=== PATIENT | female | born 1955 | race Caucasian/White ===

== ENCOUNTER 2018-08-09 14:26 | Emergency (ER) | payer OTHER, SELFPAY ==
[2018-08-09 14:33] VITALS: BP 138/87; PULSE 74; RESP 14; TEMP 36.2; O2SAT 99; BMI 23.6
[2018-08-09 17:46] LABS: Add Manual Diff / Slide Review NO; Basophils Absolute Auto 100 /uL (0-100); Basophils Percent Auto 1.1 % (0-2); Eosinophils Absolute Auto 200 /uL (0-450); Eosinophils Percent Auto 4.4 % (2-4); Hematocrit 42.1 % (36-46); Lymphocytes Absolute Auto 1500 /uL (1100-4500); Lymphocytes Percent Auto 27.8 % (25-40); Mean Corpuscular HGB Conc 33.3 % (30-36); Mean Corpuscular Hemoglobin 29.8 PG (26-34); Mean Corpuscular Volume 89.6 fL (80-100); Monocytes Absolute Auto 400 /uL (0-900); Monocytes Percent Auto 6.9 % (3-14); Neutrophils Absolute Auto 3200 /uL (1500-7000); Neutrophils Percent Auto 59.8 % (50-75); Platelet Count 248 X10^3/uL (150-400); Red Cell Distribution Width 14.7 % (11.6-14.8); White Blood Cell Count 5.4 X10^3/uL (4.5-11.0)
--- NOTE | 2018-08-09 17:48 | PC.NURSE ---
Patient with swelling, redness, open blistered area to left cheek and around orbit. Ecchymosis extends down face to jawline. Patient states this has been ongoing since July with multiple oral antibiotic courses.
[2018-08-09 17:50] LABS: Alanine Aminotransferase 28 IU/L (9-52); Albumin 5.1 g/dL (3.5-5.0); Albumin Globulin Ratio 1.5 (1.0-2.8); Alkaline Phosphatase 75 U/L (38-126); Aspartate Aminotransferase 28 IU/L (14-36); BUN Creatinine Ratio 28.6 (6-22); Bilirubin Total 0.4 mg/dL (0.2-1.3); Blood Urea Nitrogen 20 mg/dL (7-17); Calcium 9.9 mg/dL (8.4-10.2); Carbon Dioxide 29 mmol/L (22-32); Chloride 101 mmol/L (98-107); Estimated Glomerular Filt Rate > 60.0 mL/min (>60); Globulin 3.3 g/dL (1.7-4.1); Glucose 82 mg/dL (80-110); HEMOLYSIS 24 (0-50); Sodium 139 mmol/L (137-145); Total Protein 8.4 g/dL (6.3-8.2)
[2018-08-09 17:51] LABS: Lactate (Lactic Acid) 0.9 mmol/L (0.7-2.1)
[2018-08-09 18:13] LABS: Procalcitonin < 0.05 ng/mL (<0.5)
--- NOTE | 2018-08-09 18:26 | DI.CT.S_ITS ---
PROCEDURE: CT FACIAL BONES W CON INDICATIONS: severe facial swelling TECHNIQUE: After the administration of intravenous contrast, 2.5 mm axial sections acquired from the mid-neck to the frontal sinuses, with coronal and sagittal reformats. For radiation dose reduction, the following was used: automated exposure control, adjustment of mA and/or kV according to patient size. COMPARISON: None. FINDINGS: Image quality: Degraded by dental artifact. Soft tissues: No edema, masses, or fluid collections. No enlarged lymph nodes. Vascular: Visualized vascular structures appear patent throughout. Bony vascular foramina and canals appear normal. Bones: Facial bones appear intact, without fractures, erosions, or destruction. Visualized portions of the skull base and auditory canals also appear normal. Sinuses: Moderate bilateral maxillary sinus mucosal disease. Mastoid air cells are aerated. IMPRESSION: 1. Sinus disease. 2. Limited examination secondary to dental artifact. No definite infection is seen. Dictated by: Jasen Okeefe M.D. on 08/09/2018 at 18:49 Approved by: Jasen Okeefe M.D. on 08/09/2018 at 18:52
[2018-08-09 19:39] VITALS: BP 155/85; PULSE 54; RESP 16; O2SAT 100
--- NOTE | 2018-08-10 03:35 | ED.SKABFB ---
HPI - Skin/Abscess/Foreign Bdy General Chief complaint: Skin/Abscess/Foreign Body Stated complaint: SWELLING AND COLOR TO LT SIDE OF FACE Time Seen by Provider: 08/09/18 16:57 Source: patient and family Mode of arrival: ambulatory Limitations: no limitations History of Present Illness HPI narrative: 63-year-old female nonsmoker presents with her in the chief complaint of swelling of the left side of her face and notable bruising over the past day or 2. Her recent history includes a spontaneous left-sided headache followed by some facial swelling that was evaluated by dentist whom performed a root canal and then place her on antibiotics. She had a brief episode where things seemed to get a bit better and then the facial swelling became notably worse. She denies fever chills nor nausea or vomiting. She denies any drainage into her mouth. She denies any recent injury nor trouble swallowing. MD complaint: abscess/boil and discoloration Onset (ago): day(s) Tetanus up to date: yes Location: face Severity: moderate Quality: burning and aching Pain Consistency: constant Relieving factors: none Exacerbating factors: none Related Data Previous Rx's Medication Instructions Recorded tramadol 0 mg PO SEE INSTRUCTIONS #360 tab 08/18/16 citalopram 20 mg PO QDAY #90 tab 09/11/16 valacyclovir 500 mg PO QDAY #90 tab 12/09/16 gabapentin [Neurontin] 600 mg PO TID #180 tab 12/24/16 diclofenac sodium 50 mg PO BIDCC #60 tab 12/29/16 estradiol 0.5 mg PO QDAY #90 tab 02/04/17 prednisone 1 mg PO SEE INSTRUCTIONS #360 tab 02/04/17 zolpidem 10 mg PO HSP PRN #90 tab 02/04/17 doxycycline hyclate 100 mg PO BID #20 tab 08/09/18 Allergies Allergy/AdvReac Type Severity Reaction Status Date / Time No Known Drug Allergies Allergy Verified 08/09/18 14:33 Review of Systems Constitutional Denies chills, Denies fever(s), Denies lethargy and Denies weakness Eyes Denies change in vision, Denies eye discharge, Denies irritation and Denies loss of vision ENT Ears, Nose, Mouth, and Throat: Denies change in voice, Denies neck pain and Denies sore throat Cardiovascular Denies chest pain, Denies irregular heart rhythm, Denies lightheadedness, Denies palpitations, Denies dyspnea, Denies dyspnea on exertion and Denies orthopnea Respiratory Denies cough, Denies dyspnea, Denies dyspnea on exertion and Denies wheezing Gastrointestinal Gastrointestinal: Denies abdominal pain, Denies change in bowel habits, Denies diarrhea, Denies nausea and Denies vomiting Genitourinary Denies hematuria, Denies flank pain, Denies urinary incontinence and Denies urinary urgency Musculoskeletal Denies neck pain Integumentary/Breasts Denies pruritus, Denies erythema, Denies rash, Reports skin pain, Reports skin swelling and Denies wounds Neurologic Denies confusion, Denies loss of vision and Denies weakness Psychiatric Denies anxiety, Denies confusion, Denies depression, Denies homicidal ideation and Denies suicidal ideation Endocrine Denies palpitations Hematologic/Lymphatic Denies easy bruising Allergic/Immunologic Denies wheezing PFSH Social History Smoking Status: Unknown if ever smoked Social History Smoking Status: Unknown if ever smoked Exam Narrative Exam Narrative: GEN: A 63-year-old female very pleasant, appears younger than stated age. AOx3 and in mild distress FACE: noted swelling to left side of face without fluctuance or pain. No vision change. Yellowish/purple bruising. EYES: Pupils are equal, round, and reactive to light and accommodation. Extraoccular muscles are intact bilaterally. There is no subconjunctival hemorrhage or exudate. ORAL: No swelling, drainage, or fluctuance CHEST: Lungs are clear to auscultation bilaterally and free of wheezes, rales, or rhonchi. Heart rate is regular rhythm, there are no murmurs, clicks, rubs, or gallops. There is no chest wall tenderness. ABD: Abdomen is soft and nontender. There is no guarding or rebound. Bowel sounds are normal in all 4 quadrants. There is no mass or organomegaly. EXT: Full painless ROM of all extremities with no loss of sensation or strength. SKIN: Warm, pink, and dry. No erythema or rash Initial Vital Signs Initial Vital Signs: Vital Signs Temperature 97.1 F L 08/09/18 14:33 Pulse Rate 74 08/09/18 14:33 Respiratory Rate 14 08/09/18 14:33 Blood Pressure 138/87 08/09/18 14:33 Pulse Oximetry 99 08/09/18 14:33 Course Vital Signs - 8 hr 08/09/18 19:39 Pulse Rate 54 L Respiratory Rate 16 Blood Pressure [Left Arm] 155/85 H Pulse Oximetry 100 MDM - Skin/Abscess/Foreign Bdy Lab Data Result diagrams: 08/09/18 17:25 08/09/18 17:25 Lab Results 08/09/18 08/09/18 08/09/18 Range/Units 17:25 17:25 17:25 WBC 5.4 (4.5-11.0) X10^3/uL RBC 4.70 (4.0-5.2) X10^6/uL Hgb 14.0 (12.0-16.0) g/dL Hct 42.1 (36-46) % MCV 89.6 (80-100) fL MCH 29.8 (26-34) PG MCHC 33.3 (30-36) % RDW 14.7 (11.6-14.8) % Plt Count 248 (150-400) X10^3/uL Neut % (Auto) 59.8 (50-75) % Lymph % (Auto) 27.8 (25-40) % [place] % (Auto) 6.9 (3-14) % Eos % (Auto) 4.4 H (2-4) % Baso % (Auto) 1.1 (0-2) % Neut # (Auto) 3200 (4213-1601) /uL Lymph # (Auto) 1500 (9816-1880) /uL [place] # (Auto) 400 (0-900) /uL Eos # (Auto) 200 (0-450) /uL Baso # (Auto) 100 (0-100) /uL Sodium 139 (137-145) mmol/L Potassium 4.0 (3.4-5.1) mmol/L Chloride 101 (98-107) mmol/L Carbon Dioxide 29 (22-32) mmol/L BUN 20 H (7-17) mg/dL Creatinine 0.70 (0.52-1.04) mg/dL Estimated GFR > 60.0 (>60) mL/min BUN/Creatinine Ratio 28.6 H (6-22) Glucose 82 (80-110) mg/dL Lactate (0.7-2.1) mmol/L Calcium 9.9 (8.4-10.2) mg/dL Total Bilirubin 0.4 (0.2-1.3) mg/dL AST 28 (14-36) IU/L ALT 28 (9-52) IU/L Alkaline Phosphatase 75 (38-126) U/L Total Protein 8.4 H (6.3-8.2) g/dL Albumin 5.1 H (3.5-5.0) g/dL Globulin 3.3 (1.7-4.1) g/dL Albumin/Globulin Ratio 1.5 (1.0-2.8) Procalcitonin < 0.05 (<0.5) ng/mL 08/09/18 Range/Units 17:25 WBC (4.5-11.0) X10^3/uL RBC (4.0-5.2) X10^6/uL Hgb (12.0-16.0) g/dL Hct (36-46) % MCV (80-100) fL MCH (26-34) PG MCHC (30-36) % RDW (11.6-14.8) % Plt Count (150-400) X10^3/uL Neut % (Auto) (50-75) % Lymph % (Auto) (25-40) % [place] % (Auto) (3-14) % Eos % (Auto) (2-4) % Baso % (Auto) (0-2) % Neut # (Auto) (5804-3434) /uL Lymph # (Auto) (4606-7142) /uL [place] # (Auto) (0-900) /uL Eos # (Auto) (0-450) /uL Baso # (Auto) (0-100) /uL Sodium (137-145) mmol/L Potassium (3.4-5.1) mmol/L Chloride (98-107) mmol/L Carbon Dioxide (22-32) mmol/L BUN (7-17) mg/dL Creatinine (0.52-1.04) mg/dL Estimated GFR (>60) mL/min BUN/Creatinine Ratio (6-22) Glucose (80-110) mg/dL Lactate 0.9 (0.7-2.1) mmol/L Calcium (8.4-10.2) mg/dL Total Bilirubin (0.2-1.3) mg/dL AST (14-36) IU/L ALT (9-52) IU/L Alkaline Phosphatase (38-126) U/L Total Protein (6.3-8.2) g/dL Albumin (3.5-5.0) g/dL Globulin (1.7-4.1) g/dL Albumin/Globulin Ratio (1.0-2.8) Procalcitonin (<0.5) ng/mL Imaging Data Face CT: Radiologist's impression: [address] [address] [address] Scan Report Signed Patient: Ayad Swartz MMR#: [id number] : 1955cct:[id number] Age/Sex: 63 / FDate of Service: 08/09/18 Loc: ED Accession Number: [id number] Procedure: CT facial bones w con Ordering Provider: Surya Charles D.O. PROCEDURE: CT FACIAL BONES W CON INDICATIONS: severe facial swelling TECHNIQUE: After the administration of intravenous contrast, 2.5 mm axial sections acquired from the mid-neck to the frontal sinuses, with coronal and sagittal reformats. For radiation dose reduction, the following was used: automated exposure control, adjustment of mA and/or kV according to patient size. COMPARISON: None. FINDINGS: Image quality: Degraded by dental artifact. Soft tissues: No edema, masses, or fluid collections. No enlarged lymph nodes. Vascular: Visualized vascular structures appear patent throughout. Bony vascular foramina and canals appear normal. Bones: Facial bones appear intact, without fractures, erosions, or destruction. Visualized portions of the skull base and auditory canals also appear normal. Sinuses: Moderate bilateral maxillary sinus mucosal disease. Mastoid air cells are aerated. IMPRESSION: 1. Sinus disease. 2. Limited examination secondary to dental artifact. No definite infection is seen. Dictated by: Jasen Okeefe M.D. on 08/09/2018 at 18:49 Approved by: Jasen Okeefe M.D. on 08/09/2018 at 18:52 [facility] Narrative Medical decision making narrative: Patient's exam is very reassuring. Her imaging shows no fluid collection or other suggestion of the need for intervention Discharge Plan Departure Patient Disposition: Home Clinical Impression: Cellulitis diffuse, face Discharge Date/Time: 08/09/18 19:43 Interventions: ED Discharge Assessment Last Done: 08/09/18 19:43 Instructions: DI for Cellulitis -- Adult Activity Restrictions/Additional Instructions: *You have been diagnosed with [acute facial cellulitis ] *What to do: *Take medications as directed: Your prescription for doxycycline has been electronically transmitted to [facility] at your request *Follow up with your primary care provider in 2-3 days, call for an appointment. Let them know you were seen in the Emergency Department and that we ask that you be seen in follow up *Return to ER if you should have any new, worsening or concerning symptoms, such as [ ] Prescriptions: New doxycycline hyclate 100 mg tablet 100 mg PO BID Qty: 20 RF: 0 No Action tramadol 50 MG tablet PO SEE INSTRUCTIONS Qty: 360 RF: 1 citalopram 20 MG tablet 20 mg PO QDAY Qty: 90 RF: 3 valacyclovir 500 MG tablet 500 mg PO QDAY Qty: 90 RF: 3 gabapentin [Neurontin] 600 MG tablet 600 mg PO TID Qty: 180 RF: 3 diclofenac sodium 50 MG tablet,delayed release (DR/EC) 50 mg PO BIDCC Qty: 60 RF: 2 prednisone 1 MG tablet 1 mg PO SEE INSTRUCTIONS Qty: 360 RF: 0 estradiol 0.5 MG tablet 0.5 mg PO QDAY Qty: 90 RF: 3 zolpidem 10 MG tablet 10 mg PO HSP PRNQty: 90 RF: 0 Referrals: Melony Vega MD [Primary Care Provider] -
== END 2018-08-09 19:43 | disposition home or self-care (01) ==
PROVIDERS: Emergency Medicine; Emergency Provider Emergency Medicine; PCP Family Medicine
DX: L03.211 Cellulitis of face (principal)
CPT/HCPCS: 36415; 36591; 70487; 80053; 83605; 84145; 85025; 87040; 99282; 99285; Q9967

== ENCOUNTER 2025-05-28 18:09 | Emergency (ER) | payer MEDICARE, SELFPAY ==
[2025-05-28 18:15] VITALS: BP 181/120; PULSE 72; RESP 18; TEMP 37.1; O2SAT 98
--- NOTE | 2025-05-28 23:42 | DI.US.S_ITS ---
PROCEDURE: US PERIPH VENOUS LOW EXTREM LT INDICATIONS: LLE EDEMA POST SURGERY TECHNIQUE: Real-time imaging, as well as color and pulse Doppler interrogation, were performed of the lower extremity deep veins from the inguinal ligament to the popliteal fossa, with documentation of the visualized calf veins. COMPARISON: None. FINDINGS: The common femoral, femoral, popliteal, and the visualized calf veins are normally compressible, and free of intraluminal thrombus. Color and pulse Doppler demonstrate normal phasic intraluminal flow. There is normal augmentation response to distal compression maneuver. IMPRESSION: No findings of lower extremity deep venous thrombosis. Dictated by: Renetta nAdres M.D. on 05/29/2025 at 0:32 Approved by: Renetta Andres M.D. on 05/29/2025 at 0:32
--- NOTE | 2025-05-29 00:30 | ED.EXTPRO ---
HPI - Extremity Problem General Chief complaint: Extremity Problem,Nontraumatic Stated complaint: ab surgery recent, swelling & edema in L leg Time Seen by Provider: 05/28/25 18:42 Source: patient Mode of arrival: Ambulatory History of Present Illness HPI Narrative: 70-year-old female had abdominal pain and transfer 05/20/2025 from [facility] to [facility] for abdominal pain, found to have bowel obstruction, underwent laparotomy 05/23/2025, subsequent ileus, was in hospital for about one-week, discharged home, we will see her surgeon 06/08/2025. Had left calf swelling non painful, concern for possible blood clot. No fevers or chills. No rash or weeping, no injury to that calf recalled. Denies chest pain shortness of breath. Having passage of stool and gas, feels that her postoperative abdomen pain is not increasing. She does not have sensation that she is having swelling to the left thigh, only in the distal calf area. Related Data Previous Rx's ?Medication ?Instructions ?Recorded tramadol 50 mg tablet 0 mg (0 x 50 mg) PO SEE 08/18/16 INSTRUCTIONS #360 tabs citalopram 20 mg tablet 20 mg PO QDAY #90 tabs 09/11/16 valacyclovir 500 mg tablet 500 mg PO QDAY #90 tabs 12/09/16 gabapentin 600 mg tablet 600 mg PO TID #180 tabs 12/24/16 (Neurontin) diclofenac sodium 50 mg 50 mg PO BIDCC #60 tabs 12/29/16 tablet,delayed release estradiol 0.5 mg tablet 0.5 mg PO QDAY #90 tabs 02/04/17 prednisone 1 mg tablet 1 mg PO SEE INSTRUCTIONS #360 tabs 02/04/17 zolpidem 10 mg tablet 10 mg PO HSP PRN #90 tabs 02/04/17 doxycycline hyclate 100 mg tablet 100 mg PO BID #20 tabs 08/09/18 Allergies Allergy/AdvReac Type Severity Reaction Status Date / Time No Known Drug Allergies Allergy Verified 08/09/18 14:33 Patient History Social History Smoking Status: Former smoker Smoking Status: Former smoker alcohol intake frequency: a few times a week Exam Narrative Exam Narrative: GENERAL: Well-developed patient, in mild distress. HEAD: Atraumatic. Normocephalic. EYES: Pupils equal round and reactive. Extraocular motions intact. No scleral icterus. No injection or drainage. ENT: Nose without bleeding, purulent drainage. Throat without erythema, tonsillar hypertrophy or exudate. Airway patent. NECK: Trachea midline. Non tender CARDIOVASCULAR: Regular rate and rhythm without murmurs, gallops, or rubs. RESPIRATORY: Clear to auscultation. Breath sounds equal bilaterally. No wheezes, rales, or rhonchi. GASTROINTESTINAL: Well-healing incisional abdominal wound consistent with recent reported obstruction laparotomy surgery, no significant distention, mild incisional tenderness, normal bowel tones. EXTREMITIES: Left calf slight enlarged compared to right calf, but without redness warmth or tenderness, no discomfort with full extension at left knee and ankle. BACK: Nontender without deformity or crepitance. No flank tenderness. NEURO: AOx3. Motor functions grossly nonfocal. SKIN: No rash or erythema of visible areas Initial Vital Signs Initial Vital Signs: Vital Signs Temperature 98.7 F 05/28/25 18:15 Pulse Rate 72 05/28/25 18:15 Respiratory Rate 18 05/28/25 18:15 Blood Pressure 181/120 H 05/28/25 18:15 Pulse Oximetry 98 05/28/25 18:15 Oxygen Delivery Method Room Air 05/28/25 18:15 Course Orders Ordered: ED Orders 05/28/25 23:42 perip venous low extrem lt Stat Vital Signs Vital signs: Vital Signs - 8 hr 05/29/25 01:14 Pulse Rate 64 Respiratory Rate 15 Blood Pressure 147/90 H Pulse Oximetry 96 Oxygen Delivery Method Room Air MDM - Extremity (Nontraumatic) Imaging Data Left lower extremity venous Doppler: Radiologist's Impression: [address] [address] Ultrasound Report Signed Patient: Ayad Swartz MR#: [id number] : 1955 Acct:[id number] Age/Sex: 70 / F Date of Service: 05/28/25 Loc: ED Accession Number: [id number] Procedure: US periph venous low extrem lt Ordering Provider: Hansa Mathew MD PROCEDURE: US PERIPH VENOUS LOW EXTREM LT INDICATIONS: LLE EDEMA POST SURGERY TECHNIQUE: Real-time imaging, as well as color and pulse Doppler interrogation, were performed of the lower extremity deep veins from the inguinal ligament to the popliteal fossa, with documentation of the visualized calf veins. COMPARISON: None. FINDINGS: The common femoral, femoral, popliteal, and the visualized calf veins are normally compressible, and free of intraluminal thrombus. Color and pulse Doppler demonstrate normal phasic intraluminal flow. There is normal augmentation response to distal compression maneuver. IMPRESSION: No findings of lower extremity deep venous thrombosis. Dictated by: Renetta Andres M.D. on 05/29/2025 at 0:32 Approved by: Renetta Andres M.D. on 05/29/2025 at 0:32 [facility] Narrative Medical decision making narrative: Ultrasound left lower extremity venous Doppler, no DVT demonstrated. See radiology report. We did discuss abdomen and pelvis imaging to look for proximal large vessel clots in the lower pelvis/iliac veins, however patient does not have upper left thigh area pain or swelling, declines CT pelvis imaging for now. Consider taking oral baby aspirin, consider repeat venous Doppler ultrasound lower extremity imaging if leg pain/swelling symptoms persist in the next 2-3 days, can be ordered as an outpatient if needed. Return precautions discussed. Discharged home with family. Discharge Plan Departure Patient Disposition: Home Clinical Impression: Left leg swelling Activity Restrictions/Additional Instructions: Left calf swelling of unclear cause, recent bowel obstruction and surgeries and [place]. No redness or warmth on examination but visibly slightly larger on left calf than right calf, however no swelling or pain symptoms to the left upper thigh. Ultrasound venous Doppler of the left lower extremity showed no evidence of clots today. It is possible that he might have non visualized very small micro clots, consider baby aspirin daily for now. Consider repeat ultrasound if symptoms are persistent in the next 2-3 days. Recheck with your regular doctor in the next couple of days on [facility]. Return to this/nearest emergency department for any change worsening symptoms or any concerns prior. Follow up with your general surgeon as planned post bowel obstruction surgery, sounds like you are passing gas and stool, and now having increasing pain or distention so far. Prescriptions: No Action tramadol 50 MG tablet 0 mg PO SEE INSTRUCTIONS Qty: 360 1RF citalopram 20 MG tablet 20 mg PO QDAY Qty: 90 3RF valacyclovir 500 MG tablet 500 mg PO QDAY Qty: 90 3RF gabapentin [Neurontin] 600 MG tablet 600 mg PO TID Qty: 180 3RF diclofenac sodium 50 MG tablet,delayed release (DR/EC) 50 mg PO BIDCC Qty: 60 2RF prednisone 1 MG tablet 1 mg PO SEE INSTRUCTIONS Qty: 360 0RF estradiol 0.5 MG tablet 0.5 mg PO QDAY Qty: 90 3RF zolpidem 10 MG tablet 10 mg PO HSP PRNQty: 90 0RF doxycycline hyclate 100 mg tablet 100 mg PO BID Qty: 20 0RF Referrals: Brendan Gonzalez MD [Primary Care Provider, Family Practice] Stand Alone Forms: Patient Portal/API
[2025-05-29 01:14] VITALS: BP 147/90; PULSE 64; RESP 15; O2SAT 96
== END 2025-05-29 01:39 | disposition home or self-care (01) ==
PROVIDERS: Emergency Provider Emergency Medicine; PCP Family Medicine
DX: R22.42 Localized swelling, mass and lump, left lower limb (principal)
CPT/HCPCS: 93971; 99281; 99283